=== PATIENT | female | born 1970 | race Caucasian/White ===

== ENCOUNTER 2017-08-22 21:43 | Emergency (ER) | payer BC ==
[2017-08-22 22:15] VITALS: BP 116/80
--- NOTE | 2017-08-22 22:28 | EDM.PDOC ---
ED HPI GENERAL MEDICAL PROBLEM - General Chief Complaint: Genitourinary Problem Stated Complaint: poss uti Time Seen by Provider: 08/22/17 21:52 Source of Information: Reports: Patient History Limitations: Reports: No Limitations - History of Present Illness INITIAL COMMENTS - FREE TEXT/NARRATIVE: This is a 47-year-old female. Onset tonight with urgency and frequency of urination. She's had these symptoms many times in the past but not recently and she recognizes it as a urinary tract infection. She's had no fever no chills she denies any other symptoms no nausea vomiting no back pain. The last time she had a urinary tract infection was a little while ago she was placed on some Septra in some Pyridium. She isn't certain why she gets urinary tract infections, she has no vaginal discharge and no other significant risk factors. She denies any other acute symptoms though she has had a recent upper respiratory infection with some mild laryngitis. 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 (See Below) Other OB/BYN History: C section Musculoskeletal History: Reports: Other (See Below) Other Musculoskeletal History: Restless leg syndrome - Past Surgical History HEENT Surgical History: Reports: Tonsillectomy Female Surgical History: Reports: Section, Tubal Ligation, Other ( See Below) Social & Family History - Tobacco Use Smoking Status *Q: Current Every Day Smoker Years of Tobacco use: 20 Packs/Tins Daily: 1 Second Hand Smoke Exposure: No - Caffeine Use Caffeine Use: Reports: Coffee - Recreational Drug Use Recreational Drug Use: No - Living Situation & Occupation Living situation: Reports: Occupation: Employed ED ROS GENERAL - Review of Systems Review Of Systems: See Below Constitutional: Denies: Fever, Chills HEENT: Reports: Other (Recent upper respiratory infection with laryngitis) Respiratory: Reports: Cough Cardiovascular: Reports: No Symptoms Endocrine: Reports: No Symptoms GI/Abdominal: Denies: Abdominal Pain, Diarrhea, Nausea, Vomiting : Reports: Dysuria, Frequency, Urgency Musculoskeletal: Reports: No Symptoms Skin: Reports: No Symptoms Neurological: Reports: No Symptoms Psychiatric: Reports: No Symptoms Hematologic/Lymphatic: Reports: No Symptoms ED EXAM, RENAL/ - Physical Exam Exam: See Below Exam Limited By: No Limitations General Appearance: Alert, WD/WN, No Apparent Distress Eye Exam: Bilateral Eye: Normal Inspection Ears: Normal External Exam Nose: Normal Inspection Throat/Mouth: Normal Inspection, Other (Laryngitis noted). No: Normal Voice Head: Normocephalic Neck: Supple Respiratory/Chest: No Respiratory Distress, Lungs Clear, Normal Breath Sounds Cardiovascular: Regular Rate, Rhythm, No Murmur GI/Abdominal: Soft, Non-Tender Back Exam: Full Range of Motion. No: CVA Tenderness (L), CVA Tenderness (R) Extremities: Normal Inspection, Normal Range of Motion Neurological: Alert, Oriented Psychiatric: Normal Affect, Normal Mood Skin Exam: Warm, Dry Course - Vital Signs Last Recorded V/S: Last Vital Signs Temp 97.2 F 08/22/17 22:13 Pulse 81 08/22/17 22:13 Resp BP 116/80 08/22/17 22:13 Pulse Ox 98 08/22/17 22:13 - Orders/Labs/Meds Orders: Active Orders 24 hr Category Date Time Status CULTURE URINE [RM] Stat Lab 08/22/17 22:45 Ordered Phenazopyridine [Urinary Pain Relief] Med 08/22/17 23:00 Active 95 mg PO TIDPC cefTRIAXone [Rocephin] 1 gm Med 08/22/17 23:00 Active Lidocaine 1% [Xylocaine 1%] 2.1 ml IM Q24H Medication Orders Ceftriaxone Sodium 1 gm/ (Lidocaine HCl 2.1 ml) 0 gm IM Q24H JOI Phenazopyridine HCl (Urinary Pain Relief) 95 mg PO TIDPC [facility] Labs: Laboratory Tests 08/22/17 Range/Units 22:25 Urine Color Dark yellow (Yellow) Urine Appearance Turbid H (Clear) Urine pH 8.0 (5.0-8.0) Ur Specific [place] 1.020 (1.005-1.030) Urine Protein 1+ H (Negative) Urine Glucose (UA) Negative (Negative) Urine Ketones Negative (Negative) Urine Occult Blood 3+ H (Negative) Urine Nitrite Negative (Negative) Urine Bilirubin Negative (Negative) Urine Urobilinogen 0.2 (0.2-1.0) Ur Leukocyte Esterase 3+ H (Negative) Urine RBC >100 H (0-5) /hpf Urine WBC >100 H (0-5) /hpf Urine WBC Clumps Few (NOT SEEN) /hpf Ur Epithelial Cells 0-5 (0-5) /hpf Amorphous Sediment Many H (NOT SEEN) /hpf Urine Bacteria Many H (FEW) /hpf Urine Mucus Not seen (FEW) /hpf Meds: Medications Generic Name Dose Route Start Last Admin Trade Name Freq PRN Reason Stop Dose Admin Ceftriaxone Sodium 1 gm/ 0 gm 08/22/17 23:00 Lidocaine HCl 2.1 ml IM Q24H JOI Phenazopyridine HCl 95 mg 08/22/17 23:00 Urinary Pain Relief PO TIDPC [facility] - Re-Assessments/Exams Free Text/Narrative Re-Assessment/Exam: 08/22/17 22:50 I spoke to the patient regarding the urine results. She is opted for a Rocephin shot to help get rid of the symptoms quickly. She will still be on some antibiotics for about 5 days and I'll provide some Pyridium for her as well. Departure - Departure Time of Disposition: 22:50 Disposition: Home, Self-Care 01 Condition: Good Clinical Impression: Urinary tract infection Qualifiers: Urinary tract infection type: acute cystitis Hematuria presence: with hematuria Qualified Code(s): N30.01 - Acute cystitis with hematuria - Discharge Information Prescriptions: Amoxicillin 500 mg PO BID #10 tablet Phenazopyridine HCl [Pyridium] 100 mg PO TID #12 tablet Referrals: Lucrecia Malagon PA [Primary Care Provider] - Forms: ED Department Discharge Additional Instructions: Drink lots of water and natural juices, during the time you having symptoms and on antibiotics stay away from coffee tea and sodas, take the Pyridium as needed for the burning urgency and frequency, take the antibiotic starting Thursday morning, recheck with your family doctor later this week or return to the ER if your symptoms worsen - My Orders Last 24 Hours: My Active Orders 08/22/17 22:45 CULTURE URINE [RM] Stat 08/22/17 23:00 Phenazopyridine [Urinary Pain Relief] 95 mg PO TIDPC cefTRIAXone [Rocephin] 1 gm Lidocaine 1% [Xylocaine 1%] 2.1 ml IM Q24H - Assessment/Plan Last 24 Hours: My Active Orders 08/22/17 22:45 CULTURE URINE [RM] Stat 08/22/17 23:00 Phenazopyridine [Urinary Pain Relief] 95 mg PO TIDPC cefTRIAXone [Rocephin] 1 gm Lidocaine 1% [Xylocaine 1%] 2.1 ml IM Q24H
[2017-08-22] MEDS ORDERED: cefTRIAXone 1 GM, Lidocaine 1% 2.1 ML IM SCH ×2 (23:00)
[2017-08-22] MEDS ORDERED: Phenazopyridine 95 MG Tab PO SCH ×2 (23:00)
== END 2017-08-22 23:15 | disposition home or self-care (01) ==
LOC: JD.ED 21:43
DX: N30.01 Acute cystitis with hematuria (principal); F17.210 Nicotine dependence, cigarettes, uncomplicated; Z88.5 Allergy status to narcotic agent; Z87.440 Personal history of urinary (tract) infections
CPT/HCPCS: 81001; 87086; 87088; 87186; 96372; 99283; A9270; J0696

== ENCOUNTER 2018-04-07 21:51 | Emergency (ER) | payer BC ==
[2018-04-07 22:01] VITALS: BP 113/62
[2018-04-07] MEDS ORDERED: Sodium Chloride 0.9% 10 ML Syringe FLUSH PRN (22:41)
--- NOTE | 2018-04-08 00:16 | EDM.PDOC ---
ED HPI GENERAL MEDICAL PROBLEM - General Chief Complaint: Chest Pain Stated Complaint: JUST HAD SURGERY/CHEST PRESSURE Time Seen by Provider: 04/07/18 22:03 Source of Information: Reports: Patient, RN Notes Reviewed - History of Present Illness INITIAL COMMENTS - FREE TEXT/NARRATIVE: 47-year-old female had onset of what started as a heartburn type discomfort mid chest and did become more severe. She became somewhat short of breath and "diaphoretic. She was not aware of palpitations. She did become mildly nauseated and mildly lightheaded. There was no syncope. She she now feels much better after arrival to ED. Those symptoms have all resolved. She did Have neck fusion surgery about 5 days ago down at [facility]. The surgery all apparently went well, she was discharged one day later. She is not diabetic. She has no history of hypertension coronary artery disease or other known medical problems. Chest Pain Score (Numeric/FACES): 5 - Related Data Allergies Allergy/AdvReac Type Severity Reaction Status Date / Time hydrocodone Allergy Nausea Verified 04/07/18 21:58 oxycodone Allergy Itching Verified 04/07/18 21:58 Home Meds: Home Meds Cyclobenzaprine [Flexeril] 10 mg PO Q8H PRN 04/07/18 [History] Ondansetron HCl [Zofran] 8 mg PO Q8H PRN 04/07/18 [History] Sennosides/Docusate Sodium [Senna-S] 2 tab PO BEDTIME 04/07/18 [History] traMADol [Ultram] 50 - 100 mg PO Q6H 04/07/18 [History] Past Medical History Gastrointestinal History: Reports: Irritable Bowel Syndrome Genitourinary History: Reports: UTI, Recurrent 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: , Other (See Below) Other OB/BYN History: C section Musculoskeletal History: Reports: Fracture, Other (See Below) Other Musculoskeletal History: Restless leg syndrome - Past Surgical History HEENT Surgical History: Reports: Tonsillectomy Female Surgical History: Reports: Section, Tubal Ligation Musculoskeletal Surgical History: Reports: Other (See Below) Other Musculoskeletal Surgeries/Procedures:: C4-5 fusion Social & Family History - Tobacco Use Smoking Status *Q: Former Smoker Used Tobacco, but Quit: Yes Month/Year Tobacco Last Used: 11/2017 - Caffeine Use Caffeine Use: Reports: Coffee - Recreational Drug Use Recreational Drug Use: No - Living Situation & Occupation Living situation: Reports: Occupation: Employed ED ROS GENERAL - Review of Systems Review Of Systems: See Below Constitutional: Reports: Diaphoresis (Gone). Denies: Fever, Chills HEENT: Denies: Sinus Problem, Throat Pain Respiratory: Reports: Shortness of Breath (Gone). Denies: Pleuritic Chest Pain , Cough Cardiovascular: Reports: Chest Pain (Gone) GI/Abdominal: Reports: Nausea (Gone). Denies: Abdominal Pain, Vomiting Neurological: Reports: Dizziness (Gone). Denies: Trouble Speaking, Difficulty Walking, Weakness ED EXAM, GENERAL - Physical Exam Exam: See Below General Appearance: Alert, No Apparent Distress Throat/Mouth: Normal Inspection, Normal Oropharynx Head: Atraumatic. No: Facial Swelling Neck: Other (There is a scar left anterior neck, healing well, no unusual swelling erythema or drainage) Respiratory/Chest: No Respiratory Distress, Lungs Clear, Normal Breath Sounds Cardiovascular: Regular Rate, Rhythm GI/Abdominal: Soft, Non-Tender Back Exam: No: CVA Tenderness (L), CVA Tenderness (R) Extremities: Normal Inspection. No: Pedal Edema, Leg Pain, Increased Warmth, Redness Neurological: Alert, Oriented, No Motor/Sensory Deficits Skin Exam: Warm, Dry, Normal Color EKG INTERPRETATION EKG Date: 04/07/18 Rhythm: NSR [place]: Normal P-Wave: Present QRS: Normal ST-T: Normal Course - Vital Signs Last Recorded V/S: Last Vital Signs Temp 98.4 F 04/07/18 21:58 Pulse 67 04/07/18 21:58 Resp 11 L 04/07/18 21:58 BP 113/62 04/07/18 21:58 Pulse Ox 99 04/07/18 21:58 - Orders/Labs/Meds Orders: Active Orders 24 hr Category Date Time Status EKG 12 Lead [EKG Documentation Completion] [RC] STAT Care 04/07/18 22:41 Active Peripheral IV Care [RC] . DIRECTED Care 04/07/18 22:42 Active Chest 1V Frontal [CR] Stat Exams 04/07/18 22:41 Taken Peripheral IV Insertion Adult [OM.PC] Stat Oth 04/07/18 22:41 Ordered Labs: Laboratory Tests 05/04/07/18 04/07/18 Range/Units 22:30 22:30 22:30 WBC 9.32 (3.98-10.04) K/mm3 RBC 4.86 (3.98-5.22) M/mm3 Hgb 13.7 (11.2-15.7) gm/L Hct 41.7 (34.1-44.9) % MCV 85.8 (79.4-94.8) fl MCH 28.2 (25.6-32.2) pg MCHC 32.9 (32.2-35.5) g/dl RDW Std Deviation 39.5 (36.4-46.3) fL Plt Count 317 (182-369) K/mm3 MPV 9.8 (9.4-12.3) fl Neut % (Auto) 52.6 (34.0-71.1) % Lymph % (Auto) 34.5 (19.3-51.7) % Parker % (Auto) 8.6 (4.7-12.5) % Eos % (Auto) 3.5 (0.7-5.8) Baso % (Auto) 0.3 (0.1-1.2) % Neut # (Auto) 4.89 (1.56-6.13) K/mm3 Lymph # (Auto) 3.22 (1.18-3.74) K/mm3 Parker # (Auto) 0.80 H (0.24-0.36) K/mm3 Eos # (Auto) 0.33 (0.04-0.36) K/mm3 Baso # (Auto) 0.03 (0.01-0.08) K/mm3 D-Dimer, Quantitative 0.63 H (0.19-0.50) mg/L Sodium 135 L (136-145) mEq/L Potassium 4.0 (3.5-5.1) mEq/L Chloride 98 (98-107) mEq/L Carbon Dioxide 29 (21-32) mEq/L Anion Gap 12.0 (5-15) BUN 12 (7-18) mg/dL Creatinine 1.0 (0.55-1.02) mg/dL Est Cr Clr Drug Dosing 59.41 mL/min Estimated GFR (MDRD) 59 (>60) mL/min BUN/Creatinine Ratio 12.0 L (14-18) Glucose 167 H (74-106) mg/dL Calcium 8.6 (8.5-10.1) mg/dL Total Bilirubin 0.3 (0.2-1.0) mg/dL AST 89 H (15-37) U/L ALT 85 H (14-59) U/L Alkaline Phosphatase 109 (46-116) U/L Total Protein 6.8 (6.4-8.2) g/dl Albumin 3.3 L (3.4-5.0) g/dl Globulin 3.5 gm/dL Albumin/Globulin Ratio 0.9 L (1-2) Meds: Medications Discontinued Medications Generic Name Dose Route Start Last Admin Trade Name Freq PRN Reason Stop Dose Admin Sodium Chloride 10 ml 04/07/18 22:41 04/07/18 23:05 Saline Flush FLUSH 10 ml ASDIRECTED PRN Administration Keep Vein Open - Re-Assessments/Exams Free Text/Narrative Re-Assessment/Exam: 04/08/18 06:02 D-dimer came back at 0.63. With the recent surgery just 5 days ago that is not alarming. I do not see that is an indication for CT pulmonary angiogram. She's been breathing, resting comfortably while here in the ED. Sats are currently running 99-100% room air. Is not tachycardic. She's had no chest discomfort or any type of arrhythmia while here in the ED. EKG did not show any acute findings. Chest x-ray was normal Departure - Departure Time of Disposition: 00:15 Disposition: Home, Self-Care 01 Condition: Fair Clinical Impression: Atypical chest pain Instructions: Nonspecific Chest Pain, [id number] Referrals: Jyothi Hernandez PA-C [Primary Care Provider] - Forms: ED Department Discharge Additional Instructions: Rest, drink plenty of water to maintain hydration, increase activity slowly as tolerated, continue current medications, follow-up clinic Thursday for recheck if possible, return to ED as discussed if symptoms worsening in any way. - My Orders Last 24 Hours: My Active Orders 04/07/18 22:41 EKG 12 Lead [EKG Documentation Completion] [RC] STAT Chest 1V Frontal [CR] Stat Peripheral IV Insertion Adult [OM.PC] Stat 04/07/18 22:42 Peripheral IV Care [RC] . DIRECTED - Assessment/Plan Last 24 Hours: My Active Orders 04/07/18 22:41 EKG 12 Lead [EKG Documentation Completion] [RC] STAT Chest 1V Frontal [CR] Stat Peripheral IV Insertion Adult [OM.PC] Stat 04/07/18 22:42 Peripheral IV Care [RC] . DIRECTED
--- NOTE | 2018-04-08 06:58 | CR ---
Chest: Frontal view of the chest was obtained. Comparison: Prior chest x-ray of 03/09/18. Heart size and mediastinum are normal. Lungs are clear. Previous lower cervical spine surgery is noted. Bony structures are grossly intact. Impression: 1. Nothing acute is seen on frontal chest x-ray. Diagnostic code #2
== END 2018-04-08 00:23 | disposition home or self-care (01) ==
LOC: JD.ED 21:51
DX: R07.89 Other chest pain (principal); Z88.5 Allergy status to narcotic agent; Z87.891 Personal history of nicotine dependence
CPT/HCPCS: 36415; 71045; 80053; 85025; 85379; 93005; 99285; J7050; 93010; 99284

== ENCOUNTER 2024-03-23 20:13 | Emergency (ER) | payer BC ==
[2024-03-23 23:59] VITALS: BP 144/86; PULSE 62
== END 2024-03-23 23:20 | disposition home or self-care (01) ==
LOC: JD.ED 20:13
DX: S60.211A Contusion of right wrist, initial encounter (principal); Z88.5 Allergy status to narcotic agent; Z79.899 Other long term (current) drug therapy; W23.1XXA Caught, crushed, jammed, or pinched between stationary objects, initial encounter
CPT/HCPCS: 73110-26-RT; 73110-RT; 73130-26-RT; 73130-RT; 99282; 99283